=== PATIENT | male | born 1975 | race Caucasian/White ===

== ENCOUNTER → 2018-04-23 09:20 | Outpatient (CLI) | payer MEDICARE, MEDICAID | END | disposition home or self-care (01) | LOC: D.MRI 09:20 | DX: M54.5 Low back pain (principal) ==

== ENCOUNTER 2019-06-16 13:01 | Emergency (ER) | payer MEDICARE ==
[~2019-06-16] VITALS: Ht 175.3 cm; Wt 90.9 kg
[2019-06-16 13:11] VITALS: Ht 175.3 cm; Wt 90.9 kg
[2019-06-16 13:36] LABS: BASOPHILS 0.4 % (0-2); EOSINOPHILS 3.3 % (0-7); HEMATOCRIT 43.1 % (42.0-54.0); HEMOGLOBIN 15.7 g/dL (13.5-17.5); IMMATURE GRANULOCYTES 0.4 % (0-5); MCH 31.3 pg (26.0-34.0); MCHC 36.4 g/dL (31.0-37.0); MEAN PLATELET VOLUME 8.8 fL (7.4-10.4); MONOCYTES 7.7 % (2-11); NEUTROPHILS 55.2 % (40-80); PLATELET COUNT 188 10x3/uL (130-400); RBC 5.01 10x6/uL (4.20-6.10); WBC 8.1 10x3/uL (4.8-10.8)
[2019-06-16 13:52] LABS: ALBUMIN 3.9 g/dL (3.4-5.0); ALKALINE PHOSPHATASE 48 U/L (46-116); ALT (SGPT) 43 U/L (10-68); BILIRUBIN - TOTAL 0.41 mg/dL (0.2-1.3); CALC OSMOLALITY 274 mosm/kg (275-300); CALCIUM 8.9 mg/dL (8.5-10.1); CARBON DIOXIDE 27.7 mmol/L (21.0-32.0); CHLORIDE - SERUM 101 mmol/L (98-107); CREATININE - SERUM 1.3 mg/dL (0.6-1.3); GLUCOSE 101 mg/dL (74-106); POTASSIUM - SERUM 3.5 mmol/L (3.5-5.1); PROTEIN - SERUM 7.6 g/dL (6.4-8.2); SODIUM 138 mmol/L (136-145); UREA NITROGEN 10 mg/dL (7-18); eGFR NON AFRICAN AMERICAN 64 mL/min (90-120)
[2019-06-16 13:53] LABS: APTT 26.5 SECONDS (22.8-39.4); PROTIME 12.7 SECONDS (11.6-15.0)
[2019-06-16 14:04] LABS: CKMB 0.6 U/L (0.0-3.6); CREATINE KINASE 246 UL (21-232); PRO BNP 28 pg/mL (0-125); TROPONIN-I < 0.017 ng/mL (0.000-0.060)
[2019-06-16 14:38] LABS: D-DIMER-QUANTITATIVE < 0.27 ug/mLFEU (0.20-0.54)
[2019-06-16] MEDS ORDERED: ALBUTEROL SULF8.5 GM INH (15:25)
[2019-06-16] MEDS ORDERED: VIBRAMYCIN 100100 MG PO (15:25)
[2019-06-16] MEDS ORDERED: PREDNISONE10 MG PO (15:25)
[2019-06-16 16:51] VITALS: BP 106/65
== END 2019-06-16 16:12 | disposition home or self-care (01) ==
LOC: D.ER 13:01
PROVIDERS: Family Medicine
DX: J40 Bronchitis, not specified as acute or chronic (principal); F17.200 Nicotine dependence, unspecified, uncomplicated

== ENCOUNTER 2020-08-09 11:59 | Emergency (ER) | payer MEDICARE, OTHER ==
[~2020-08-09] VITALS: Ht 175.3 cm; Wt 100.0 kg
[~2020-08-09 11:59] MED LIST: ALBUTEROL SULF8.5 GM INH; PREDNISONE10 MG PO; VIBRAMYCIN 100100 MG PO
[2020-08-09 12:10] VITALS: Ht 175.3 cm; Wt 100.0 kg
[2020-08-09 12:32] LABS: BASOPHILS 0.2 % (0-2); EOSINOPHILS 2.8 % (0-7); HEMATOCRIT 47.8 % (42.0-54.0); HEMOGLOBIN 16.4 g/dL (13.5-17.5); IMMATURE GRANULOCYTES 0.2 % (0-5); MCH 31.5 pg (26.0-34.0); MCHC 34.3 g/dL (31.0-37.0); MCV 91.7 fL (80.0-100.0); MEAN PLATELET VOLUME 8.6 fL (7.4-10.4); NEUTROPHILS 51.8 % (40-80); RBC 5.21 10x6/uL (4.20-6.10); RDW 13.5 % (11.5-14.5); WBC 9.2 10x3/uL (4.8-10.8)
[2020-08-09 12:34] LABS: PLATELET COUNT 278 10x3/uL (130-400)
[2020-08-09 12:41] LABS: CALC OSMOLALITY 274 mosm/kg (275-300); CALCIUM 8.5 mg/dL (8.5-10.1); CARBON DIOXIDE 25.4 mmol/L (21.0-32.0); CHLORIDE - SERUM 105 mmol/L (98-107); GLUCOSE 88 mg/dL (74-106); POTASSIUM - SERUM 3.5 mmol/L (3.5-5.1); SODIUM 140 mmol/L (136-145); UREA NITROGEN 5 mg/dL (7-18); eGFR NON AFRICAN AMERICAN 86 mL/min (90-120)
[2020-08-09 12:42] LABS: UDS - AMPHET POSITIVE QUAL (NEGATIVE); UDS - BARB NEGATIVE QUAL (NEGATIVE); UDS - BENZO NEGATIVE QUAL (NEGATIVE); UDS - COCAINE NEGATIVE QUAL (NEGATIVE); UDS - OPIATE NEGATIVE QUAL (NEGATIVE); UDS - PCP NEGATIVE QUAL (NEGATIVE); UDS - THC NEGATIVE QUAL (NEGATIVE)
[2020-08-09 12:45] LABS: BILIRUBIN NEGATIVE (NEGATIVE); KETONE NEGATIVE (NEGATIVE); NITRITE NEGATIVE (NEGATIVE); UROBILINOGEN NORMAL mg/dL (< 2)
[2020-08-09 12:48] LABS: ALKALINE PHOSPHATASE 56 U/L (30-120); ALT (SGPT) 35 U/L (10-68); BILIRUBIN - TOTAL 0.21 mg/dL (0.2-1.3); PROTEIN - SERUM 7.5 g/dL (6.4-8.2)
[2020-08-09 13:21] LABS: CREATINE KINASE 340 UL (21-232); TROPONIN-I < 0.017 ng/mL (0.000-0.060)
--- NOTE | 2020-08-09 13:30 | NUR ---
PT IS SLEEPING AND WILL NOT WAKE UP FOR ASSESSMENT. SITTER AT BEDSIDE. WILL ATTEMPT TO DO ASSESSMENT AT A LATER TIME IF NEEDED.
[2020-08-10 10:30] VITALS: BP 118/88
== END 2020-08-10 10:30 ==
LOC: D.ER 11:59
PROVIDERS: Family Medicine
DX: F23 Brief psychotic disorder (principal); F15.10 Other stimulant abuse, uncomplicated; R45.851 Suicidal ideations